=== PATIENT | female | born 1940 | race Caucasian/White ===

== ENCOUNTER 2018-01-20 14:20 | Emergency (ER) | payer BC, MEDICARE ==
[~2018-01-20] VITALS: Ht 177.8 cm; Wt 102.1 kg
[~2018-01-20 14:20] MED LIST: CIPRO500 MG PO; METFORMIN HCL850 M1 ORAL
[2018-01-20 19:10] VITALS: BP 128/76
[2018-01-20 19:59] LABS: EOSINOPHILS % (AUTO) 2.8 % (0.0-3.0); HEMATOCRIT 44.3 % (37.0-47.0); HEMOGLOBIN 14.9 G/DL (12.0-16.0); LYMPHOCYTES % (AUTO) 24.7 % (20.0-45.0); MEAN CORPUSCULAR VOLUME 87 FL (80-99); MONOCYTES % (AUTO) 6.4 % (1.0-10.0); NEUTROPHILS % (AUTO) 65.2 % (45.0-75.0); PLATELET COUNT 294 K/UL (150-450); RED CELL DISTRIBUTION WIDTH 12.5 % (11.6-14.8); WHITE BLOOD COUNT 9.6 K/UL (4.8-10.8)
[2018-01-20 20:08] LABS: INR 0.9 (0.9-1.1)
[2018-01-20 20:15] LABS: ANION GAP 7 mmol/L (5-15); BLOOD UREA NITROGEN 15 mg/dL (7-18); CALCIUM 9.2 MG/DL (8.5-10.1); CARBON DIOXIDE 29 MMOL/L (21-32); CHLORIDE 99 MMOL/L (98-107); POTASSIUM 4.1 MMOL/L (3.5-5.1); SODIUM 135 MMOL/L (136-145)
[2018-01-20 20:29] LABS: ALANINE AMINOTRANSFERASE 27 U/L (12-78); ALBUMIN 4.3 G/DL (3.4-5.0); ALKALINE PHOSPHATASE 72 U/L (46-116); ASPARTATE AMINO TRANSFERASE 18 U/L (15-37); BILIRUBIN,TOTAL 0.4 MG/DL (0.2-1.0); CKMB 0.8 NG/ML (0.0-3.6); CREATINE KINASE 91 U/L (26-308)
--- NOTE | 2018-01-20 20:55 | Emergency Room Report ---
History of Present Illness General Chief Complaint: Pain Source: Patient Present Illness HPI The patient states that she was driving today and she suddenly felt a popping sensation in the right part of her head. She states that her face felt numb. She was worried that possibly her eyelid looked lower than usual. She states she felt a fullness in her head. She denies weakness. She denies recent illness. She denies fever or chills. She denies nausea or vomiting. She denies chest pain or shortness of breath. She denies abdominal pain. She denies blurry vision. She has no other complaints. Allergies: Coded Allergies: No Known Allergies (Unverified , 11/13/14) Patient History Past Medical History: see triage record Past Surgical History: hysterectomy, other - Lap band, CAD Social History: Denies: smoking, alcohol use, drug use Reviewed Nursing Documentation: PMH: Agreed; PSxH: Agreed Review of Systems All Other Systems: negative except mentioned in HPI Physical Exam Vital Signs Date Time Temp Pulse Resp B/P (MAP) Pulse Ox O2 Delivery O2 Flow Rate FiO2 01/20/18 14:52 98.0 88 18 95 Room Air 98.1 01/20/18 19:10 128/76 Sp02 EP Interpretation: reviewed, normal General Appearance: no apparent distress, alert, GCS 15, non-toxic Head: normocephalic, atraumatic Eyes: bilateral eye normal inspection, bilateral eye PERRL ENT: hearing grossly normal, normal pharynx, no angioedema, normal voice Neck: full range of motion, supple/symm/no masses Respiratory: chest non-tender, lungs clear, normal breath sounds, no respiratory distress, no retraction, no accessory muscle use, speaking full sentences Cardiovascular #1: regular rate, rhythm, no edema Gastrointestinal: normal bowel sounds, non tender, soft, non-distended, no guarding, no rebound Rectal: deferred Musculoskeletal: back normal, gait/station normal, normal range of motion, non- tender Neurologic: alert, oriented x3, responsive, assembly manager III-XII nml as tested, motor strength/tone normal, sensory intact, cerebellar normal, normal gait, speech normal Psychiatric: judgement/insight normal, memory normal, mood/affect normal, no suicidal/homicidal ideation Skin: normal color, no rash, warm/dry, well hydrated Medical Decision Making Diagnostic Impression: Primary Impression: Migraine equivalent ER Course This patient presented with a nonspecific sensation in her head. Because of the neurologic aspects of her symptoms, I obtained a CT of the head. This showed an arachnoid cyst. I felt I should further assessed with an MRI of the brain. This MRI was unremarkable. Laboratory workup to include CBC, CMP and cardiac enzymes are also unremarkable. The patient's evaluation is reassuring. The patient's nor exam is normal. The patient's exam overall is benign. I am unsure of the etiology of this patient's symptoms. Possibly this is a migraine equivalent. Regardless, I did not identify an emergency medical condition. The patient is given close return precautions and follow-up instructions. Laboratory Tests Test 01/20/18 19:15 White Blood Count 9.6 K/UL (4.8-10.8) Red Blood Count 5.10 M/UL (4.20-5.40) Hemoglobin 14.9 G/DL (12.0-16.0) Hematocrit 44.3 % (37.0-47.0) Mean Corpuscular Volume 87 FL (80-99) Mean Corpuscular Hemoglobin 29.2 PG (27.0-31.0) Mean Corpuscular Hemoglobin Concent 33.7 G/DL (32.0-36.0) Red Cell Distribution Width 12.5 % (11.6-14.8) Platelet Count 294 K/UL (150-450) Mean Platelet Volume 6.0 FL (6.5-10.1) L Neutrophils (%) (Auto) 65.2 % (45.0-75.0) Lymphocytes (%) (Auto) 24.7 % (20.0-45.0) Monocytes (%) (Auto) 6.4 % (1.0-10.0) Eosinophils (%) (Auto) 2.8 % (0.0-3.0) Basophils (%) (Auto) 1.0 % (0.0-2.0) Prothrombin Time 9.7 SEC (9.30-11.50) Prothrombin Time INR 0.9 (0.9-1.1) PTT 26 SEC (23-33) Sodium Level 135 MMOL/L (136-145) L Potassium Level 4.1 MMOL/L (3.5-5.1) Chloride Level 99 MMOL/L (98-107) Carbon Dioxide Level 29 MMOL/L (21-32) Anion Gap 7 mmol/L (5-15) Blood Urea Nitrogen 15 mg/dL (7-18) Creatinine 1.0 MG/DL (0.55-1.30) Estimate Glomerular Filtration Rate mL/min (>60) Glucose Level 120 MG/DL (74-106) H Calcium Level 9.2 MG/DL (8.5-10.1) Total Bilirubin 0.4 MG/DL (0.2-1.0) Aspartate Amino Transferase (AST) 18 U/L (15-37) Alanine Aminotransferase (ALT) 27 U/L (12-78) Alkaline Phosphatase 72 U/L (46-116) Total Creatine Kinase 91 U/L (26-308) Creatine Kinase MB 0.8 NG/ML (0.0-3.6) Creatine Kinase MB Relative Index 0.8 Troponin I 0.000 ng/mL (0.000-0.056) Total Protein 8.6 G/DL (6.4-8.2) H Albumin 4.3 G/DL (3.4-5.0) Globulin 4.3 g/dL Albumin/Globulin Ratio 1.0 (1.0-2.7) EKG Diagnostic Results Rate: normal Rhythm: NSR ST Segments: no acute changes Rhythm Strip Diag. Results EP Interpretation: yes Rate: 80's Rhythm: NSR, no PVC's, no ectopy Chest X-Ray Diagnostic Results Chest X-Ray Diagnostic Results : Chest X-Ray Ordered: Yes # of Views/Limited/Complete: 1 View Indication: Chest Pain EP Interpretation: Yes Interpretation: no consolidation, no effusion, no pneumothorax, no acute cardiopulmonary disease Impression: No acute disease Electronically Signed by: Red Last Vital Signs Date Time Temp Pulse Resp B/P (MAP) Pulse Ox O2 Delivery O2 Flow Rate FiO2 01/20/18 19:10 98.0 77 18 128/76 95 Room Air 98.0 Status: improved Disposition: HOME, SELF-CARE Condition: Improved Referrals: [facility],REFERRING (PCP) LOUIS GASTELUM D.O. Jan 20, 2018 20:55
[2018-01-20 21:15] VITALS: BP 116/76
[2018-01-20 21:24] VITALS: BP 116/76
--- NOTE | 2018-01-21 08:31 | Diagnostic Imaging Report ---
Indication: Chest pain Technique: One view of the chest Comparison: none Findings: There is minimal atelectasis at the left lung base. Lungs and pleural spaces otherwise clear. Azygos lobe and fissure-normal anatomic variant-incidentally noted. The heart size is normal Impression: Left basilar atelectasis. No acute process otherwise
--- NOTE | 2018-01-21 08:33 | Diagnostic Imaging Report ---
Indications: Said pain Technique: Spiral acquisitions obtained through the brain. Angled axial and coronal 5 x 5 mm slices were reconstructed. Total dose length product 1478.13 mGycm. CTDI vol(s) 70.38 mGy. Dose reduction achieved using automated exposure control Comparison: None. Findings: There is prominence of the ventricles, somewhat out of proportion to the extra-axial CSF spaces. There is a right temporal tip arachnoid cyst. No acute intracranial hemorrhage or edema, mass effect, or midline shift. Normal smith-white differentiation. Intact calvarium. There is mastoid opacification on the left. The sinuses are clear. The orbits demonstrate evidence of prior cataract surgery Impression: Ventriculomegaly, most likely secondary to central volume loss Negative for acute intracranial bleed or mass effect Right temporal tip arachnoid cyst Left mastoiditis This agrees with the preliminary interpretation provided overnight by [facility]. The CT scanner at [facility] is accredited by the [employer] and the scans are performed using protocols designed to limit radiation exposure to as low as reasonably achievable to attain images of sufficient resolution adequate for diagnostic evaluation.
--- NOTE | 2018-01-21 08:41 | Diagnostic Imaging Report ---
Indication: Right-sided weakness times one Technique: sagittal T1 fast spin echo, axial T1 and T2 FLAIR PROPELLER, axial T2 FS PROPELLER, T2* GRE, axial diffusion weighted images, post contrast axial and coronal T1 FLAIR PROPELLER images. ADC and exponential ADC maps generated Comparison: Reference made to CT scan performed one hour earlier Findings: . No abnormal areas of restricted diffusion to suggest acute infarction. No acute hemorrhage or edema. No mass effect nor midline shift. No abnormal contrast enhancement. There is ventriculomegaly. There is mild prominence of the extra-axial CSF spaces. Right temporal tip arachnoid cyst is again demonstrated. The vertebral arteries are ectatic bilaterally.. There is evidence of prior bilateral cataract surgery. The sinuses are clear. There is mastoid fluid on the left.. Impression: Age-related volume loss Negative for acute intracranial bleed, mass effect, infarct, or contrast enhancing lesion Left mastoid disease Right temporal tip arachnoid cyst. This agrees with the preliminary interpretation provided overnight by [facility].
--- NOTE | 2018-01-21 21:19 | Cardiology Report ---
APPROVED REPORT EKG Measurement Heart [id number] Normal sinus rhythm Incomplete right bundle branch block Septal infarct, age undetermined Abnormal ECG
== END 2018-01-20 21:24 | disposition home or self-care (01) ==
LOC: EMR 15:35
DX: G43.909 Migraine, unspecified, not intractable, without status migrainosus (principal); I25.10 Atherosclerotic heart disease of native coronary artery without angina pectoris; Z90.710 Acquired absence of both cervix and uterus; Z98.84 Bariatric surgery status; G93.0 Cerebral cysts; H70.92 Unspecified mastoiditis, left ear
CPT/HCPCS: 36415; 70450; 70553; 71045; 80053; 82550; 82553; 84484; 85025; 85610; 85730; 93005; 99283; A9585